=== PATIENT | male | born 1970 | race Caucasian/White ===

== ENCOUNTER 2017-10-17 21:15 | Emergency (ER) | payer MEDICAID ==
[~2017-10-17] VITALS: Ht 185.4 cm; Wt 86.2 kg
--- NOTE | 2017-10-17 21:45 | NUR ---
Pt ambulated to ER, c/o pain on right hip and right ankle 10/10 from fall from chair, reports had a seizure and fell.
[2017-10-17] MEDS ORDERED: ZOLP10TA6 PO (22:03)
[2017-10-17] MEDS ORDERED: HYDR-3641 PO (22:03)
[2017-10-17] MEDS ORDERED: [UNRECOGNIZED DRUG - CODE] PO (22:03)
[2017-10-17] MEDS ORDERED: RANI150T43 PO (22:03)
[2017-10-17] MEDS ORDERED: IBUP-1627 (22:03)
--- NOTE | 2017-10-17 22:10 | NUR ---
Dr. Connors at bedside for MSE.
[2017-10-17] MEDS ORDERED: TRAMADOL HCL 50 MG TABLET PO ONE (22:15)
[2017-10-17] MEDS ORDERED: TRAMADOL HCL 50 MG TABLET ONE (22:24)
--- NOTE | 2017-10-17 23:56 | NUR ---
Patient discharged to home in stable conditon. Written and verbal after care instructions given. Patient verbalizes understanding of instructions. Patient ambulated out of ER with steady gait, no acute signs of distress, VSS, all belongings taken.
[2017-10-18 00:28] VITALS: BP 128/84
== END 2017-10-18 | disposition home or self-care (01) ==
LOC: ER 21:17
DX: S99.911A Unspecified injury of right ankle, initial encounter (principal); M25.571 Pain in right ankle and joints of right foot; G89.29 Other chronic pain; E11.9 Type 2 diabetes mellitus without complications; F17.210 Nicotine dependence, cigarettes, uncomplicated; Z88.2 Allergy status to sulfonamides; Z79.1 Long term (current) use of non-steroidal anti-inflammatories (NSAID); Z79.899 Other long term (current) drug therapy; X58.XXXA Exposure to other specified factors, initial encounter; Y93.89 Activity, other specified; Y92.89 Other specified places as the place of occurrence of the external cause; Y99.8 Other external cause status
CPT/HCPCS: 73610; 73630; A4663

== ENCOUNTER 2018-01-17 17:40 | Emergency (ER) | payer MEDICAID ==
[~2018-01-17] VITALS: Ht 185.4 cm; Wt 83.9 kg
[~2018-01-17 17:40] MED LIST: HYDR-3641 PO; IBUP-1627; RANI150T43 PO; ZOLP10TA6 PO; [UNRECOGNIZED DRUG - CODE] PO
[2018-01-17] MEDS ORDERED: MORPHINE SULFATE 4 MG/1 ML DISP.SYRIN IM ONE ×2 (18:15)
[2018-01-17] MEDS ORDERED: LAMO100T PO (18:16)
[2018-01-17] MEDS ORDERED: CLOR15TA PO (18:16)
[2018-01-17] MEDS ORDERED: PARO20TA7 PO (18:16)
[2018-01-17] MEDS ORDERED: ARIP15TA3 PO (18:16)
[2018-01-17] MEDS ORDERED: METF10004 PO (18:16)
[2018-01-17] MEDS ORDERED: MORPHINE SULFATE 4 MG/1 ML DISP.SYRIN ONE (18:28)
--- NOTE | 2018-01-17 18:31 | NUR ---
PT WAS EVALUATED BY DR QUINTERO. PT WAS D/C TO HOME. D/C INSTRUCTIONS GIVEN TO THE PT.
[2018-01-17 18:32] VITALS: BP 103/65
== END 2018-01-17 18:33 | disposition home or self-care (01) ==
LOC: ER 17:41
DX: M25.552 Pain in left hip (principal); F17.200 Nicotine dependence, unspecified, uncomplicated; Z88.2 Allergy status to sulfonamides
CPT/HCPCS: 96372; 99283; 99406; A4663; J2270

== ENCOUNTER 2018-09-03 02:23 | Emergency (ER) | payer MEDICAID, OTHER ==
[~2018-09-03] VITALS: Ht 172.7 cm; Wt 79.4 kg
[~2018-09-03 02:23] MED LIST changes: +ARIP15TA3 PO; +CLOR15TA PO; -IBUP-1627; +LAMO100T PO; +METF-442 PO; +PARO20TA7 PO
--- NOTE | 2018-09-03 02:40 | NUR ---
Patient ambulated with stable gait using one-sided crutches. AAOx4. Speech is clear, speaks in complete sentences. Patient came in with c/o general body pains in multiple locations. No respiratory distress, no sob, no cough. No cardiovascular distress ntoed, all pulses palpable. No GI/ distress. Patient in bed at lowest position, side rails upx2, call light within reach. Fall precautions implemented per protocol.
[2018-09-03] MEDS ORDERED: HYDROCODONE/APAP 5-325MG TABLET ONE (02:52)
[2018-09-03] MEDS ORDERED: HYDROCODONE/APAP 5-325MG TABLET PO ONE (03:00)
--- NOTE | 2018-09-03 03:06 | NUR ---
Patient discharged to home in stable conditon. Written and verbal after care instructions given. Patient verbalizes understanding of instructions. Patient ambulated with stable gait out of room without crutches, with no visible limping. Reminded patient that he forgot his crutches in the room. Patient proceeded to walk back to the room to grab them. Ambulated out of dept with stable gait.
[2018-09-03 03:09] VITALS: BP 100/63
== END 2018-09-03 03:09 | disposition home or self-care (01) ==
LOC: ER 02:25
DX: G89.29 Other chronic pain (principal); M25.551 Pain in right hip; M25.552 Pain in left hip; K08.89 Other specified disorders of teeth and supporting structures; E11.9 Type 2 diabetes mellitus without complications; F17.200 Nicotine dependence, unspecified, uncomplicated; Z88.2 Allergy status to sulfonamides; Z79.899 Other long term (current) drug therapy
CPT/HCPCS: A4663

== ENCOUNTER 2019-01-15 00:01 | Emergency (ER) | payer MEDICAID, OTHER ==
[~2019-01-15] VITALS: Ht 175.3 cm; Wt 77.1 kg
[~2019-01-15 00:01] MED LIST changes: +RANI-655 PO; -RANI150T43 PO
--- NOTE | 2019-01-15 00:20 | NUR ---
Dr. Mclean at bedside for MSE.
[2019-01-15] MEDS ORDERED: HYDROCODONE/APAP 10-325 MG TABLET ONE (00:29)
[2019-01-15] MEDS ORDERED: TRAMADOL HCL 50 MG TABLET PO ONE (00:30)
[2019-01-15] MEDS ORDERED: ONDANSETRON ODT 4 MG TAB.RAPDIS ONE (00:30)
[2019-01-15] MEDS ORDERED: HYDROCODONE/APAP 10-325 MG TABLET PO ONE (00:30)
[2019-01-15] MEDS ORDERED: TRAMADOL HCL 50 MG TABLET ONE (00:30)
[2019-01-15] MEDS ORDERED: ONDANSETRON ODT 4 MG TAB.RAPDIS SL ONE (00:30)
--- NOTE | 2019-01-15 00:32 | NUR ---
Patient discharged to home in stable conditon. Written and verbal after care instructions given. Patient verbalizes understanding of instructions. Pt ambulated out of ER with steady gait, no acute signs of distress, VSS, all belongings taken, instructed not to drive, patient will take taxi home.
[2019-01-15 00:34] VITALS: BP 127/80
== END 2019-01-15 00:35 | disposition home or self-care (01) ==
LOC: ER 00:06
DX: G89.4 Chronic pain syndrome (principal); M25.551 Pain in right hip; E11.9 Type 2 diabetes mellitus without complications; F32.9 Major depressive disorder, single episode, unspecified; F41.9 Anxiety disorder, unspecified; F17.200 Nicotine dependence, unspecified, uncomplicated; Z88.2 Allergy status to sulfonamides; Z79.899 Other long term (current) drug therapy
CPT/HCPCS: A4663; Q0162

== ENCOUNTER 2019-02-11 23:40 | Emergency (ER) | payer MEDICAID ==
[~2019-02-11] VITALS: Ht 175.3 cm; Wt 77.6 kg
--- NOTE | 2019-02-11 23:55 | NUR ---
PT CAME IN FROM HOME, WITH ANTALGIC GAIT C/O CHRONIC HIP PAIN +GUARDING OF SITE ABLE TO SPEAK CLEAR AND COMPLETE SENTENCES, DENIES FEVERS/CHILLS/HEADACHE, DENIES NVD DENIES PARESTHESIAS DENIES CHANGES IN B/B FUNCTION SIDERAILSX2 UP, BED AT LOWEST POSITION MD AT BEDSIDE FOR HX AND PHYSICAL
[2019-02-12] MEDS ORDERED: TRAMADOL HCL 50 MG TABLET ONE (00:11)
--- NOTE | 2019-02-12 00:13 | NUR ---
Patient discharged to home in stable conditon. Written and verbal after care instructions given. Patient verbalizes understanding of instructions. ALL BELONGINGS WITH PT
[2019-02-12 00:14] VITALS: BP 115/71
[2019-02-12] MEDS ORDERED: TRAMADOL HCL 50 MG TABLET PO ONE (00:15)
== END 2019-02-12 00:15 | disposition home or self-care (01) ==
LOC: ER 23:42
DX: G89.29 Other chronic pain (principal); M25.551 Pain in right hip; M25.552 Pain in left hip; F32.9 Major depressive disorder, single episode, unspecified; F41.9 Anxiety disorder, unspecified; E11.9 Type 2 diabetes mellitus without complications; F17.200 Nicotine dependence, unspecified, uncomplicated; Z88.2 Allergy status to sulfonamides; Z79.899 Other long term (current) drug therapy
CPT/HCPCS: A4663

== ENCOUNTER 2019-09-12 22:08 | Emergency (ER) | payer MEDICAID ==
[~2019-09-12] VITALS: Ht 177.8 cm; Wt 83.9 kg
--- NOTE | 2019-09-12 22:49 | NUR ---
Patient discharged to home in stable conditon. Written and verbal after care instructions given. Patient verbalizes understanding of instructions. Walked out of ER with use of walked with no distress noted.
== END 2019-09-12 22:51 | disposition home or self-care (01) ==
LOC: ER 22:10
DX: Z76.0 Encounter for issue of repeat prescription (principal); G89.29 Other chronic pain; M87.9 Osteonecrosis, unspecified; M25.552 Pain in left hip; M25.551 Pain in right hip; E11.9 Type 2 diabetes mellitus without complications; Z79.84 Long term (current) use of oral hypoglycemic drugs
CPT/HCPCS: A4663

== ENCOUNTER 2020-03-18 03:03 | Emergency (ER) | payer MEDICAID ==
[~2020-03-18] VITALS: Ht 180.3 cm; Wt 82.6 kg
[~2020-03-18 03:03] MED LIST changes: -ARIP15TA3 PO; -CLOR15TA PO; +GABA300C PO; -HYDR-3641 PO; +IBUP-1958 PO; -LAMO100T PO; +PANT20TA2 PO; -PARO20TA7 PO; -RANI-655 PO; -ZOLP10TA6 PO; -[UNRECOGNIZED DRUG - CODE] PO
[2020-03-18] MEDS ORDERED: METF-442 PO (03:33)
[2020-03-18] MEDS ORDERED: ACET-2605 PO (03:33)
[2020-03-18] MEDS ORDERED: EMPA25TA PO (03:33)
[2020-03-18] MEDS ORDERED: SEMA1PEN SQ (03:33)
[2020-03-18] MEDS ORDERED: PANT40TA2 PO (03:33)
--- NOTE | 2020-03-18 03:50 | NUR ---
Patient refused to have EKG, blood drawn or any other procedure to be done.
--- NOTE | 2020-03-18 03:52 | NUR ---
Patient does not wish to proceed with medical care recommended by Dr. VAZQUEZ ). Patient given information related to possible complications, up to and including , which could occur as a result of leaving the hospital at this time. Patient verbalizes understanding of risks involved due to leaving against medical advice. Patient has signed AMA form.
[2020-03-18] MEDS ORDERED: ONDANSETRON ODT 4 MG TAB.RAPDIS SL ONE (04:00)
== END 2020-03-18 04:00 | disposition left against medical advice (07) ==
LOC: ER 03:08 → MERGE 03:08 → ER 04:00
DX: R11.10 Vomiting, unspecified (principal); G89.29 Other chronic pain; M79.7 Fibromyalgia; Z96.641 Presence of right artificial hip joint; J44.9 Chronic obstructive pulmonary disease, unspecified; E11.40 Type 2 diabetes mellitus with diabetic neuropathy, unspecified; Z79.84 Long term (current) use of oral hypoglycemic drugs; Z88.2 Allergy status to sulfonamides
CPT/HCPCS: 93005; A4663

== ENCOUNTER 2021-01-15 17:25 | Emergency (ER) | payer MEDICAID ==
[~2021-01-15] VITALS: Ht 180.3 cm; Wt 81.6 kg
[~2021-01-15 17:25] MED LIST changes: +ACET-2605 PO; +EMPA25TA PO; +PANT40TA2 PO; +SEMA1PEN SQ
--- NOTE | 2021-01-15 17:57 | NUR ---
DR GALLARDO AT BEDSIDE FOR EVALUATION.
[2021-01-15] MEDS ORDERED: HYDROCODONE/APAP 10-325 MG TABLET PO ONE (18:00)
[2021-01-15] MEDS ORDERED: HYDROCODONE/APAP 10-325 MG TABLET ONE (19:07)
[2021-01-15] MEDS ORDERED: ACET1TAB23 PO (19:59)
--- NOTE | 2021-01-15 20:32 | NUR ---
Patient discharged to home in stable condition. Written and verbal after care instructions given. Patient verbalizes understanding of instructions. Stressed follow up or return to ER for worsening s/s. Pt. walks w/ steady gait. No signs of distress, vss. All belongings taken.
[2021-01-15 20:33] VITALS: BP 121/79
== END 2021-01-15 20:02 | disposition home or self-care (01) ==
LOC: ER 17:34
DX: G89.29 Other chronic pain (principal); M25.552 Pain in left hip; M54.5 Low back pain; Z96.641 Presence of right artificial hip joint; M87.88 Other osteonecrosis, other site
CPT/HCPCS: 72100; 73502; A4663

== ENCOUNTER 2021-04-08 17:57 | Emergency (ER) | payer MEDICAID ==
[~2021-04-08] VITALS: Ht 180.3 cm; Wt 83.9 kg
[~2021-04-08 17:57] MED LIST changes: +ACET1TAB23 PO
--- NOTE | 2021-04-08 18:28 | NUR ---
PT IS IN ROOM #1A. DR SCHUMACHER EVALUATED THE PT.
[2021-04-08] MEDS ORDERED: LIDOCAINE HCL 2% 20 ML VIAL IJ ONE (19:00)
[2021-04-08] MEDS ORDERED: OXYC-128 PO (19:42)
--- NOTE | 2021-04-08 20:12 | NUR ---
Right palm cleaned,dressing as directed. Reviewed aftervisit summary. Signs of worsening are redness,pus drainage,moderate pain, fever. May return to ED for wound eval in 2 days. Return here or Primary Provider for suture removal in 2 weeks. Elevate above heart at rest x 2 days. Patient able to verbalize instructions.
[2021-04-08 20:18] VITALS: BP 118/70
== END 2021-04-08 20:05 | disposition home or self-care (01) ==
LOC: ER 17:59
DX: S61.411A Laceration without foreign body of right hand, initial encounter (principal); W01.0XXA Fall on same level from slipping, tripping and stumbling without subsequent striking against object, initial encounter; Y92.89 Other specified places as the place of occurrence of the external cause; E11.9 Type 2 diabetes mellitus without complications; Z88.2 Allergy status to sulfonamides; Z79.84 Long term (current) use of oral hypoglycemic drugs; M79.7 Fibromyalgia; G89.29 Other chronic pain; J44.9 Chronic obstructive pulmonary disease, unspecified; Z79.899 Other long term (current) drug therapy
CPT/HCPCS: 12002; 99283; J3490; A4663

== ENCOUNTER 2022-01-25 18:26 | Emergency (ER) | payer SELFPAY ==
[~2022-01-25] VITALS: Ht 180.3 cm; Wt 81.6 kg
[~2022-01-25 18:26] MED LIST changes: +OXYC-128 PO
--- NOTE | 2022-01-25 20:00 | NUR ---
Patient left ER waiting room stating "I don't want to wait anymore. I will come later."
== END 2022-01-25 20:00 | disposition left against medical advice (07) ==
LOC: ER 18:26
DX: Z53.21 Procedure and treatment not carried out due to patient leaving prior to being seen by health care provider (principal)

== ENCOUNTER 2023-02-04 01:32 | Emergency (ER) | payer MEDICAID ==
[~2023-02-04] VITALS: Ht 180.3 cm; Wt 81.6 kg
[2023-02-04] MEDS ORDERED: DIAZEPAM 10 MG/2 ML DISP.SYRIN IV ONE (02:00)
[2023-02-04] MEDS ORDERED: MORPHINE SULFATE 4 MG/1 ML DISP.SYRIN IV ONE (02:00)
[2023-02-04 02:26] LABS: BASOPHILS % (AUTO) 0.3 % (0.0-2.0); EOSINOPHILS # (AUTO) 0.2 K/uL (0.0-0.7); EOSINOPHILS % (AUTO) 2.6 % (0.0-7.0); HEMATOCRIT 41.1 % (36.7-47.1); HEMOGLOBIN 14.1 g/dL (12.5-16.3); LYMPHOCYTES # (AUTO) 2.1 K/uL (0.8-4.8); LYMPHOCYTES % (AUTO) 35.5 % (20.5-51.5); MEAN CORPUSCULAR HGB CONC 34 g/dL (32.5-36.3); MEAN CORPUSCULAR VOLUME 93.2 fL (73.0-96.2); MONOCYTES # (AUTO) 0.5 K/uL (0.1-1.30); MONOCYTES % (AUTO) 8.3 % (0.0-11.0); NEUTROPHILS # (AUTO) 3.1 K/uL (1.8-8.9); NEUTROPHILS % (AUTO) 53.3 % (38.5-71.5); PLATELET COUNT (AUTO) 193 K/uL (152-348); RED BLOOD CELL COUNT(AUTO) 4.41 MIL/uL (4.06-5.63); RED CELL DISTRIBUTION WIDTH 14.4 % (12.1-16.2); WHITE BLOOD COUNT (AUTO) 5.9 K/uL (3.6-10.2)
[2023-02-04 02:33] LABS: DIFFERENTIAL COMMENT 1
[2023-02-04 02:37] LABS: CALCIUM 8.9 mg/dL (8.5-10.1); CREATININE 0.9 mg/dL (0.6-1.3); POTASSIUM 4.2 mmol/L (3.5-5.1)
[2023-02-04] MEDS ORDERED: DIAZEPAM 10 MG/2 ML DISP.SYRIN ONE (02:43)
[2023-02-04] MEDS ORDERED: MORPHINE SULFATE 4 MG/1 ML DISP.SYRIN ONE (02:46)
[2023-02-04 02:52] LABS: ALBUMIN 3.7 g/dL (3.4-5.0); BILIRUBIN,TOTAL 0.2 mg/dL (0.2-1.0); TOTAL PROTEIN, SERUM 6.5 g/dL (6.4-8.2)
[2023-02-04] MEDS ORDERED: HYDROMORPHONE 1 MG/1 ML DISP.SYRIN IV ONE (03:45)
[2023-02-04] MEDS ORDERED: ONDANSETRON 4 MG/2 ML VIAL IV ONE (03:45)
[2023-02-04] MEDS ORDERED: HYDROMORPHONE 1 MG/1 ML DISP.SYRIN ONE (03:58)
[2023-02-04] MEDS ORDERED: ONDANSETRON 4 MG/2 ML VIAL ONE (03:58)
[2023-02-04] MEDS ORDERED: BACL10TA PO (04:42)
[2023-02-04 04:59] LABS: *BILIRUBIN,URIN NEGATIVE (NEGATIVE); *BLOOD, URINE NEGATIVE (NEGATIVE); *CLARITY,URINE CLEAR (CLEAR); *COLOR,URINE YELLOW (YELLOW); *KETONES,URINE TRACE (NEGATIVE); *PROTEIN,URINE NEGATIVE (NEGATIVE); *UROBILINOGEN,URINE 0.2 E.U./dl (NORMAL); LEUKOCYTE ESTERASE ,URINE NEGATIVE (NEGATIVE); NITRITE, URINE NEGATIVE (NEGATIVE)
[2023-02-04 05:05] VITALS: BP 131/93; TEMP 97.9; O2SAT 96
[2023-02-04 06:07] LABS: UGLUCOSE 3+ (NEGATIVE)
[2023-02-04 06:08] LABS: BACTERIA,URINE NONE SEEN /HPF (NONE SEEN); RBC,URINE 20-50 /HPF (0-3); SQUAMOUS EPITHELIAL CELL,UR NONE SEEN /HPF (NONE SEEN); WBC,URINE 0-3 /HPF (0-3)
== END 2023-02-04 05:00 | disposition home or self-care (01) ==
LOC: ER 01:38
DX: M54.50 Low back pain, unspecified (principal); R10.31 Right lower quadrant pain; J44.9 Chronic obstructive pulmonary disease, unspecified; E11.9 Type 2 diabetes mellitus without complications; F17.210 Nicotine dependence, cigarettes, uncomplicated; Z88.2 Allergy status to sulfonamides; Z79.899 Other long term (current) drug therapy
CPT/HCPCS: 99285; 74176; 96374; 96375; 80053; 81001; 83690; 85025; 36415; J3360; J2405; J1170; J2270; A4663

== ENCOUNTER 2024-12-15 01:12 | Emergency (ER) | payer MEDICAID ==
[~2024-12-15] VITALS: Ht 180.3 cm; Wt 82.6 kg
[~2024-12-15 01:12] MED LIST changes: +BACL10TA PO
[2024-12-15] MEDS: IV NS 1000 ML 1,000 ML IV ONE (02:27)
[2024-12-15 02:29] LABS: PLATELET COUNT (AUTO) 207 K/uL (152-348); RED BLOOD CELL COUNT(AUTO) 4.62 MIL/uL (4.06-5.63); RED CELL DISTRIBUTION WIDTH 16.2 % (12.1-16.2); WHITE BLOOD COUNT (AUTO) 6.7 K/uL (3.6-10.2)
[2024-12-15 02:31] LABS: *BILIRUBIN,URIN NEGATIVE (NEGATIVE); *BLOOD, URINE NEGATIVE (NEGATIVE); *CLARITY,URINE CLEAR (CLEAR); *COLOR,URINE YELLOW (YELLOW); *KETONES,URINE NEGATIVE (NEGATIVE); *PROTEIN,URINE NEGATIVE (NEGATIVE); *UROBILINOGEN,URINE 0.2 E.U./dl (NORMAL); LEUKOCYTE ESTERASE ,URINE NEGATIVE (NEGATIVE); NITRITE, URINE NEGATIVE (NEGATIVE); UGLUCOSE 3+ (NEGATIVE)
[2024-12-15 02:39] LABS: CREATININE 0.9 mg/dL (0.6-1.3); SODIUM SERUM 145.0 mmol/L (136-145); UREA NITROGEN, BLOOD 13.0 mg/dL (7-18)
[2024-12-15 02:44] LABS: ASPARTATE AMINOTRANSFERASE 16.0 U/L (15-37); TOTAL PROTEIN, SERUM 7.2 g/dL (6.4-8.2)
[2024-12-15] MEDS ORDERED: IOHEXOL 300MG/ML 100 ML INFUS..BTL ONE (03:06)
[2024-12-15] MEDS ORDERED: IV NORMAL SALINE 250 ML IV ONE (03:06)
[2024-12-15] MEDS ORDERED: SWABABLE VALVE TRANSFER SET EA MC ONE (03:06)
[2024-12-15 06:37] VITALS: BP 107/80; O2SAT 99
== END 2024-12-15 06:21 | disposition home or self-care (01) ==
LOC: ER 01:21
DX: R10.9 Unspecified abdominal pain (principal); R11.0 Nausea; E11.9 Type 2 diabetes mellitus without complications; F17.210 Nicotine dependence, cigarettes, uncomplicated; G89.29 Other chronic pain; J44.9 Chronic obstructive pulmonary disease, unspecified; M79.7 Fibromyalgia; F32.A Depression, unspecified; F41.9 Anxiety disorder, unspecified; N40.0 Benign prostatic hyperplasia without lower urinary tract symptoms; Z79.84 Long term (current) use of oral hypoglycemic drugs; Z79.899 Other long term (current) drug therapy; Z87.19 Personal history of other diseases of the digestive system; Z88.2 Allergy status to sulfonamides; Z96.643 Presence of artificial hip joint, bilateral; Z87.39 Personal history of other diseases of the musculoskeletal system and connective tissue
CPT/HCPCS: 99285; 74177; 96360; 96361; 80053; 81003; 83690; 85025; 36415; Q9967; J7040; A4606; A4663